=== PATIENT | male | born 1965 | race Two or more races ===

== ENCOUNTER 2017-08-22 00:45 | Emergency (ER) | payer OTHER ==
[~2017-08-22] VITALS: Ht 175.3 cm; Wt 95.3 kg
[~2017-08-22 00:45] MED LIST: BLOO-668 IN; GLIP10TA11 PO; METF500T4 PO
--- NOTE | 2017-08-22 02:20 | NUR ---
PT AMBULATORY TO ER BED 7, PT C/O RT FOOT PAIN SINCE YESTERDAY. STATES HE THINKS HE HAS A WOUND ON THE RIGHT FOOT. VSS/RESP EVEN UNLABORED/NAD NOTED.
--- NOTE | 2017-08-22 03:15 | NUR ---
LAB AT BEDSIDE
[2017-08-22 03:21] LABS: BASOPHILS % (AUTO) 0.3 % (0.0-2.0); EOSINOPHILS # (AUTO) 0.3 /CMM (0.0-0.7); EOSINOPHILS % (AUTO) 2.4 % (0.0-6.0); HEMATOCRIT 39 % (39-51); HEMOGLOBIN 13.3 g/dL (13.5-17.5); LYMPHOCYTES # (AUTO) 2.2 /CMM (0.8-4.8); LYMPHOCYTES % (AUTO) 17.1 % (20.0-44.0); MEAN CORPUSCULAR HEMOGLOBIN 30 PG (26.0-33.0); MEAN CORPUSCULAR HGB CONC 34 g/dl (31.0-36.0); MEAN CORPUSCULAR VOLUME 89 fL (80-96); MONOCYTES # (AUTO) 0.9 /CMM (0.1-1.30); MONOCYTES % (AUTO) 6.8 % (2.0-12.0); NEUTROPHILS # (AUTO) 9.2 /CMM (1.8-8.9); NEUTROPHILS % (AUTO) 73.4 % (43.0-81.0); PLATELET COUNT (AUTO) 200 /CMM (150-450); RDW COEFFICIENT OF VARIATION 12.7 (11.5-15.0); RED BLOOD CELL COUNT(AUTO) 4.43 MIL/uL (4.5-6.0); WHITE BLOOD COUNT (AUTO) 12.6 K/uL (4.3-11.0)
[2017-08-22 03:37] LABS: CALCIUM, SERUM 8.9 mg/dL (8.5-10.1); POTASSIUM 4.3 mmol/L (3.5-5.1)
--- NOTE | 2017-08-22 04:00 | NUR ---
XRAY ON BEDSIDE
[2017-08-22] MEDS ORDERED: CLINDAMYCIN HCL 150 MG CAPSULE PO ONE ×2 (05:00→05:05)
[2017-08-22] MEDS ORDERED: IV NS 0.9% 1,000 ML BAG IV ONE (05:00)
[2017-08-22] MEDS ORDERED: LEVOFLOXACIN (750 MG) 750 MG TABLET PO SCH (05:00)
[2017-08-22] MEDS ORDERED: LEVOFLOXACIN (750 MG) 750 MG TABLET ONE (05:05)
--- NOTE | 2017-08-22 05:20 | NUR ---
20G IV TO RIGHT WRIST USING ASEPTIC TECH, FLUSHES EASILY WITH NS. PT TOLERATED WELL.
--- NOTE | 2017-08-22 06:30 | NUR ---
IV removed. Catheter intact and site benign. Pressure and 4x4 applied to site. No bleeding noted. Patient discharged to home in stable condition. Written and verbal after care instructions given. Patient verbalizes understanding of instruction. Pt ambulatory with a steady gait.
[2017-08-22 06:31] VITALS: BP 131/84
== END 2017-08-22 06:33 | disposition home or self-care (01) ==
LOC: ER 00:45
DX: E11.621 Type 2 diabetes mellitus with foot ulcer (principal); L97.519 Non-pressure chronic ulcer of other part of right foot with unspecified severity; E11.65 Type 2 diabetes mellitus with hyperglycemia; Z79.84 Long term (current) use of oral hypoglycemic drugs
CPT/HCPCS: 36415; 73630; 80048; 85025; 85652; 96360; 99285; A4606; J7030; Z7610

== ENCOUNTER 2017-10-10 22:56 | Inpatient (IN) | payer OTHER ==
[~2017-10-10] VITALS: Ht 172.7 cm; Wt 103.4 kg
--- NOTE | 2017-10-10 23:05 | NUR ---
TO BED 1 A 52 YO MALE PATIENT BB SELF C/O RIGHT FOOR ULCER X 2 MONTHS. VSS. NAD NOTED. COMFORT MEASURE RENDERED.
--- NOTE | 2017-10-11 00:10 | NUR ---
started a saline lock on the left hand g18, blood drawb and sent to lab.
[2017-10-11 00:33] LABS: BASOPHILS % (AUTO) 0.2 % (0.0-2.0); EOSINOPHILS # (AUTO) 0.2 /CMM (0.0-0.7); EOSINOPHILS % (AUTO) 1.7 % (0.0-6.0); HEMATOCRIT 39 % (39-51); HEMOGLOBIN 13.1 g/dL (13.5-17.5); LYMPHOCYTES % (AUTO) 14.7 % (20.0-44.0); MEAN CORPUSCULAR HEMOGLOBIN 30 PG (26.0-33.0); MEAN CORPUSCULAR HGB CONC 34 g/dl (31.0-36.0); MEAN CORPUSCULAR VOLUME 89 fL (80-96); MONOCYTES # (AUTO) 0.8 /CMM (0.1-1.30); MONOCYTES % (AUTO) 6.1 % (2.0-12.0); NEUTROPHILS # (AUTO) 10.3 /CMM (1.8-8.9); NEUTROPHILS % (AUTO) 77.3 % (43.0-81.0); PLATELET COUNT (AUTO) 222 /CMM (150-450); RDW COEFFICIENT OF VARIATION 13.1 (11.5-15.0); RED BLOOD CELL COUNT(AUTO) 4.34 MIL/uL (4.5-6.0); WHITE BLOOD COUNT (AUTO) 13.4 K/uL (4.3-11.0)
[2017-10-11 00:41] LABS: CALCIUM, SERUM 8.8 mg/dL (8.5-10.1); POTASSIUM 3.8 mmol/L (3.5-5.1)
[2017-10-11 00:43] LABS: INR 0.9 (0.87-1.13); PROTHROMBIN TIME 9.4 SECS (9.5-12.7)
[2017-10-11] MEDS ORDERED: LEVOFLOXACIN 750 MG /D5W 150ML PIGGYBACK IV ONE (01:00)
[2017-10-11] MEDS ORDERED: VANCOMYCIN 1 GM in IV D5W 250 ML IV ONE (01:00)
[2017-10-11] MEDS ORDERED: PIPERACILLIN /TAZOBACTAM 3.375 G in IV D5W 50 ML IV ONE (01:00)
[2017-10-11] MEDS ORDERED: PIPERACILLIN /TAZOBACTAM 3.375 G VIAL IV ONE (01:05)
[2017-10-11] MEDS ORDERED: IV NS 0.9% 1,000 ML BAG IV ONE ×2 (01:30)
[2017-10-11] MEDS ORDERED: VANCOMYCIN 1 GM VIAL ONE (01:41)
--- NOTE | 2017-10-11 02:50 | NUR ---
Report given to Sommer BETANCOURT for admission and jo.
[2017-10-11] MEDS ORDERED: LEVOFLOXACIN 750 MG /D5W 150ML 150 ML IV ONE (02:51)
[2017-10-11 03:00] VITALS: BP 155/97
--- NOTE | 2017-10-11 03:00 | NUR ---
MS SENIOR AUDITOR NOTES ADMITTED THIS 52 Y.O. MALE FROM ER PER [facility],A/O X4,FROM HOME,BROUGHT IN SELF TO ER DUE RIGHT FOOT ULCER X 2 MONTHS.NOTES RIGHT FOOT PITTING EDEMA +2,SMALL WOUND ON RIGHT FOOT DISTAL,PLANTAR AREA 0.5CMX0,5 CM,WITH SMALL AMOUNT OF DRY OLD BLOOD NOTED.DENIES PAIN AT THE MOMENT.RIGHT FOOT ELEVATED ON PILLOWS.SALINE LOCK LEFT HAND INTACT AND PATENT.LEVAQUIN IV INFUSING FROM ER.ABLE TO AMBULATE WITH STEADY GAIT.CALL LIGHT IN REACH,NEEDS ANTICIPATED.
--- NOTE | 2017-10-11 03:15 | NUR ---
Transferred patient to ms bed, no inciden noted.
[2017-10-11] MEDS ORDERED: MAG HYDROX/AL HYDROX/SIMETH 30 ML UDC PO PRN (03:30)
[2017-10-11] MEDS ORDERED: ONDANSETRON HCL/PF 4 MG/2 ML VIAL IVP PRN (03:30)
[2017-10-11] MEDS ORDERED: ZOLPIDEM TARTRATE 5 MG TABLET PO PRN (03:30)
[2017-10-11] MEDS ORDERED: HYDROCODONE/APAP 10/325MG 1 EA TABLET PO PRN (03:30)
[2017-10-11] MEDS ORDERED: HYDROCODONE/APAP 5/325MG 1 EACH TABLET PO PRN (03:30)
[2017-10-11] MEDS ORDERED: Z GUARD REMEDY 2 OZ OINT TP PRN (03:30)
[2017-10-11] MEDS ORDERED: ACETAMINOPHEN 325 MG TABLET PO PRN (03:30)
[2017-10-11] MEDS ORDERED: MAGNESIUM HYDROXIDE 30 ML UDC PO PRN (03:30)
[2017-10-11] MEDS ORDERED: VANCOMYCIN 1 GM in IV D5W 250 ML IV SCH (03:30)
[2017-10-11] MEDS ORDERED: DEXTROSE 50%-WATER 50 ML DISP.SYRIN IV PRN (03:30)
[2017-10-11] MEDS ORDERED: ENOXAPARIN SODIUM 40 MG/0.4 ML DISP.SYRIN SQ ONE (04:16)
[2017-10-11] MEDS: IV NS 0.9% 1,000 ML IV PRN ×2 (04:23→23:14)
--- NOTE | 2017-10-11 04:23 | NUR ---
MS RN NOTES STARTED ON NS 1LITER AT 75ML/HR RATE VIA PUMP
[2017-10-11] MEDS: ENOXAPARIN SODIUM 40 MG/0.4 ML DISP.SYRIN SQ SCH (04:25)
--- NOTE | 2017-10-11 04:25 | NUR ---
MS RN NOTES STARTED ON LOVENOX 40MG SQ,GIVEN ON LEFT LOWER ABDOMEN
[2017-10-11] MEDS ORDERED: PIPERACILLIN /TAZOBACTAM 4.5 G in IV D5W 50 ML IV SCH (05:00)
[2017-10-11] MEDS: BLOOD SUGAR DIAGNOSTIC 1 EACH STRIP IN SCH ×4 (05:48→21:18)
--- NOTE | 2017-10-11 06:00 | NUR ---
MS RN NOTES ACCU-CHECK BLOOD SUGAR CHECK 114,NO INSULIN COVERAGE
--- NOTE | 2017-10-11 06:30 | NUR ---
LITERATURE TEACHER NOTES IN BED A/O X,4DENIES PAIN,SLEPT WELL.IN NO ACUTE DISTRESS.WILL ENDORSE TO DAY NURSE FOR VICTORIANO.
--- NOTE | 2017-10-11 07:15 | NUR ---
RN INITIAL NOTES REPORT RECEIVED AT THE BEDSIDE. PATIENT IS RESTING COMFORTABLY IN BED. NO SOB OR DISTRESS NOTED AT THIS TIME. PATIENT DENIES PAIN.BED IN A LOW POSITION, CALL LIGHT WITHIN PATIENT REACH. WILL CONTINUE TO MONITOR.
[2017-10-11] MEDS ORDERED: FEE PK DOSING 1 MIN EA MC ONE (07:54)
[2017-10-11 08:00] VITALS: BP 131/80
[2017-10-11] MEDS: glipiZIDE 10 MG TABLET PO SCH ×2 (09:00→17:01)
[2017-10-11] MEDS: METFORMIN 500 MG TABLET PO SCH ×2 (09:00→17:01)
[2017-10-11] MEDS: PIPERACILLIN /TAZOBACTAM 3.375 G in IV D5W 50 ML IV SCH ×3 (09:32→23:57)
[2017-10-11] MEDS: VANCOMYCIN 1.25 GM in IV D5W 500 ML IV SCH (12:06)
[2017-10-11] MEDS: INSULIN REGULAR, HUMAN 100 UNIT/ML 3 ML VIAL SQ PRN ×2 (12:07→17:02)
[2017-10-11 16:00] VITALS: BP 138/89
--- NOTE | 2017-10-11 19:30 | NUR ---
MS RN NOTES RECEIVED RESTING COMFORTABLY ON BED,A/O X4,BREATHING REGULAR,NOT IN ANY FORM OF DISTRESS.IVF NS AT 75ML/HR RATE IN PROGRESS.RIGHT FOOT WOUND WITH DRESSING INTACT AND DRY.DENIES PAIN,CALL LIGHT IN REACH,NEEDS ANTICIPATED.
[2017-10-11 20:00] VITALS: BP 136/85
[2017-10-11 20:48] VITALS: BP 136/85
--- NOTE | 2017-10-11 21:20 | NUR ---
MS RN NOTES ACCU-CHECK BLOOD SUGAR CHECK 119,NO INSULIN COVERAGE.
[2017-10-12] MEDS: VANCOMYCIN 1.25 GM in IV D5W 500 ML IV SCH ×2 (00:28→12:51)
[2017-10-12] MEDS: ENOXAPARIN SODIUM 40 MG/0.4 ML DISP.SYRIN SQ SCH (03:39)
[2017-10-12] MEDS: PIPERACILLIN /TAZOBACTAM 3.375 G in IV D5W 50 ML IV SCH ×2 (05:29→11:51)
--- NOTE | 2017-10-12 05:30 | NUR ---
MS RN NOTES ACCU-CHECK BLOOD SUGAR CHECK 116,NO INSULIN COVERAGE.DUE IV ZOSYN IVPB CHILANGO.
[2017-10-12] MEDS: BLOOD SUGAR DIAGNOSTIC 1 EACH STRIP IN SCH ×2 (06:32→11:51)
--- NOTE | 2017-10-12 06:34 | NUR ---
MS RN NOTES SLEPT WELL AT [facility],IVF INFUSING,DENIES PAIN DISCOMFORTS.AWAITING PODIATRY CONSULT.CALL LIGHT IN REAC,HNEEDS ENDED.WILL ENDORSE TO DAY NURSE FOR VICTORIANO.
--- NOTE | 2017-10-12 07:46 | NUR ---
MS RN: INITIAL NOTE RECEIVED PT A/OX4. ON ROOM AIR SATING AT 98%. NO DISTRESS NOTED. NO SOB NOTED. NO PAIN NOTED. CONTINENT. USES URINAL AND BRP. L HAND #18 RUNNING NS AT 75ML/HR. SITE CLEAR AND PATENT. RESTING COMFORTABLY IN BED. CALL LIGHT WITHIN REACH.
[2017-10-12 08:00] VITALS: BP 128/90
[2017-10-12 08:12] LABS: CALCIUM, SERUM 8.7 mg/dL (8.5-10.1); CREATININE 0.8 mg/dL (0.6-1.3); MAGNESIUM 1.9 mg/dL (1.8-2.4); PHOSPHORUS 2.5 mg/dL (2.5-4.9); POTASSIUM 3.7 mmol/L (3.5-5.1)
[2017-10-12 08:13] LABS: THYROID STIMULATING HORMONE 3.262 uIU/mL (0.358-3.74)
[2017-10-12 08:15] LABS: BASOPHILS % (AUTO) 0.3 % (0.0-2.0); EOSINOPHILS # (AUTO) 0.4 /CMM (0.0-0.7); HEMATOCRIT 36 % (39-51); HEMOGLOBIN 11.9 g/dL (13.5-17.5); LYMPHOCYTES # (AUTO) 2.2 /CMM (0.8-4.8); LYMPHOCYTES % (AUTO) 28.8 % (20.0-44.0); MEAN CORPUSCULAR HEMOGLOBIN 30 PG (26.0-33.0); MEAN CORPUSCULAR HGB CONC 34 g/dl (31.0-36.0); MEAN CORPUSCULAR VOLUME 90 fL (80-96); MONOCYTES # (AUTO) 0.7 /CMM (0.1-1.30); MONOCYTES % (AUTO) 8.8 % (2.0-12.0); NEUTROPHILS # (AUTO) 4.4 /CMM (1.8-8.9); NEUTROPHILS % (AUTO) 57.1 % (43.0-81.0); PLATELET COUNT (AUTO) 212 /CMM (150-450); RDW COEFFICIENT OF VARIATION 13.1 (11.5-15.0); RED BLOOD CELL COUNT(AUTO) 3.96 MIL/uL (4.5-6.0); WHITE BLOOD COUNT (AUTO) 7.7 K/uL (4.3-11.0)
[2017-10-12] MEDS: glipiZIDE 10 MG TABLET PO SCH (08:37)
[2017-10-12] MEDS: METFORMIN 500 MG TABLET PO SCH (08:37)
--- NOTE | 2017-10-12 11:25 | NUR ---
WOUND CARE CONSULT WOUND CARE RECEIVED CONSULT FOR RIGHT FOOT ULCER. WOUND CARE WILL DEFER CONSULT AND TREATMENT PLAN TO PODIATRY AT THIS TIME. PATIENT WITH JUDY AT 20. ALL DISCUSSED WITH MEDIA PROFESSIONAL AND SHE WILL CALL DATA MODELING ARCHITECT PER MD ORDERS.
[2017-10-12] MEDS ORDERED: CLIN150C16 PO (13:20)
--- NOTE | 2017-10-12 14:37 | NUR ---
MS RN: DISCHARGE NOTE PT D/C HOME WITH SELF CARE. NO DISTRESS NOTED. NO SOB NOTED. NO PAIN NOTED. TOOK ALL MEDICATIONS ON TIME. NO ADVERSE REACTIONS NOTED. L HAND #18 IV D/C. SITE CLEAR. NO REDNESS NOTED. AMBULATORY. ALL DISCHARGE INFORMATION PROVIDED. ALL DOCUMENTS SIGNED BY PT. ALL VALUABLES ACCOUNTED FOR. LEFT AMBULATORY VIA PRIVATE CAR AND SELF.
[2017-10-12] MEDS ORDERED: LACTOBACILLUS RHAMNOSUS GG 1 EACH CAP.SPRINK PO SCH (17:00)
== END 2017-10-12 14:30 | disposition home or self-care (01) | DRG 638 ==
LOC: ER 22:58 → MED 10-11 02:45
DX: E11.621 Type 2 diabetes mellitus with foot ulcer (principal); E44.1 Mild protein-calorie malnutrition; L97.519 Non-pressure chronic ulcer of other part of right foot with unspecified severity; E88.09 Other disorders of plasma-protein metabolism, not elsewhere classified; E78.5 Hyperlipidemia, unspecified; K21.9 Gastro-esophageal reflux disease without esophagitis; Z79.84 Long term (current) use of oral hypoglycemic drugs; Z68.34 Body mass index [BMI] 34.0-34.9, adult
CPT/HCPCS: 36415; 73630-TC; 80048-TC; 80061-TC; 80202-TC; 82962-TC; 83605-TC; 83735-TC; 84100-TC; 84443-TC; 85025-TC; 85610-TC; 85652-TC; 87040-TC; 87081-TC; A4606; J1650; J1815; J1956; J2543; J3370; J7030; J7060; Z7610